=== PATIENT | male | born 1945 | race Caucasian/White ===

== ENCOUNTER → 2019-02-06 | Outpatient (CLI) | payer OTHER ==
[~2019-02-06] MED LIST: ACET325 PO; ACET650SUP PR; BUSP5 PO; DILANTIN; DOCU100 PO; HYDACE5325 PO; LAMICTAL; LAMO100 PO; OXYACE5T PO; PHENY100ER PO; SENN187 PO; TRAZ50 PO; Tylenol325 MG PO; [UNRECOGNIZED DRUG - REMARK]
== END | disposition home or self-care (01) ==
LOC: LAB SHORT 18:28 → LAB 18:28
DX: N39.0 Urinary tract infection, site not specified (principal); R31.9 Hematuria, unspecified
CPT/HCPCS: 87077; 87086; 87186

== ENCOUNTER 2019-06-19 13:12 | Emergency (ER) | payer OTHER ==
[~2019-06-19] VITALS: Ht 177.8 cm; Wt 72.6 kg
[2019-06-19] MEDS ORDERED: ZESTORETIC 20-121 EA (13:48)
[2019-06-19] MEDS ORDERED: Cetirizine HCl10 MG PO (13:49)
[2019-06-19 14:13] LABS: BASOPHILS ABSOLUTE AUTO 0.04 K/mm3 (0.00-0.23); BASOPHILS PERCENT AUTO 0 % (0-2); EOSINOPHILS ABSOLUTE AUTO 0.05 K/mm3 (0.00-0.68); EOSINOPHILS PERCENT AUTO 1 % (0-6); Hematocrit 39.2 % (37.0-53.0); Hemoglobin 12.6 g/dL (13.5-17.5); IMMATURE GRAN ABSOLUTE AUTO 0.03 K/mm3 (0.00-0.10); IMMATURE GRAN PERCENT AUTO 0 % (0-1); LYMPHOCYTES ABSOLUTE AUTO 1.37 K/mm3 (0.84-5.20); LYMPHOCYTES PERCENT AUTO 14 % (21-46); MONOCYTES ABSOLUTE AUTO 0.88 K/mm3 (0.16-1.47); MONOCYTES PERCENT AUTO 9 % (4-13); Mean Corpuscular HGB 31.7 pg (26.0-34.0); Mean Corpuscular HGB Conc 32.1 g/dL (31.5-36.5); Mean Corpuscular Volume 99 fL (80-100); Mean Platelet Volume 11.6 fL (9.1-12.4); NEUTROPHILS ABSOLUTE AUTO 7.38 K/mm3 (1.96-9.15); NEUTROPHILS PERCENT AUTO 76 % (41-73); Platelet Count 209 K/mm3 (150-400); RDW Standard Deviation 47.1 fL (35.1-46.3); Red Blood Cell Count 3.98 M/mm3 (4.30-5.90); White Blood Cell Count 9.75 K/mm3 (4.00-11.30)
[2019-06-19 14:23] LABS: Alanine Aminotransfer (ALT/SGP 26 U/L (12-78); Albumin, Blood 3.8 g/dL (3.4-5.0); Albumin/Globulin Ratio 1.2 (0.8-1.8); Alk Phos 87 U/L (50-136); Anion Gap 7 mmol/L (6-16); Aspartate Aminotrans (AST/SGOT 55 U/L (12-37); Bilirubin, Total 0.7 mg/dL (0.1-1.0); Blood Urea Nitrogen 29 mg/dL (8-24); Bun/Creatinine Ratio 32.1 (12.0-20.0); CO2, Blood 23 mmol/L (21-32); Calcium, Blood 8.8 mg/dL (8.5-10.1); Chloride, Blood 113 mmol/L (98-108); Dilantin (Phenytoin), Total <0.4 ug/mL (10.0-20.0); Globulin, Blood 3.3 g/dL (2.2-4.0); Glomerular Filtration Rate >60 (60-); Glucose, Blood 101 mg/dL (70-99); Potassium, Blood 3.8 mmol/L (3.5-5.5); Sodium, Blood 143 mmol/L (136-145); Total Protein, Blood 7.1 g/dL (6.4-8.2)
[2019-06-19] MEDS ORDERED: Dilantin 100 m100 MG PO (15:56)
[2019-06-19] MEDS ORDERED: BUSP5 PO (15:56)
[2019-06-19] MEDS ORDERED: Hydrochloroth12.5 MG PO (15:56)
[2019-06-19] MEDS ORDERED: Prinivil10 MG PO (15:56)
[2019-06-19] MEDS ORDERED: Lamictal100 MG PO (15:56)
== END 2019-06-19 16:35 | disposition home or self-care (01) ==
LOC: ER 13:12
PROVIDERS: Emergency Medicine
DX: G40.909 Epilepsy, unspecified, not intractable, without status epilepticus (principal); F32.9 Major depressive disorder, single episode, unspecified; Z91.14 Patient's other noncompliance with medication regimen; Z79.899 Other long term (current) drug therapy; Z87.891 Personal history of nicotine dependence
CPT/HCPCS: 36415; 80053; 80185; 85025; 93005; 93010; 96365; 99284-25; Q2009

== ENCOUNTER 2019-08-13 15:21 | Emergency (ER) | payer OTHER ==
[~2019-08-13] VITALS: Ht 177.8 cm; Wt 74.8 kg
[~2019-08-13 15:21] MED LIST changes: +Cetirizine HCl10 MG PO; +Dilantin 100 m100 MG PO; +Hydrochloroth12.5 MG PO; +Lamictal100 MG PO; +Prinivil10 MG PO; +ZESTORETIC 20-121 EA
[2019-08-13] MEDS ORDERED: LEVE500 PO (17:20)
[2019-08-13 17:22] LABS: BASOPHILS ABSOLUTE AUTO 0.06 K/mm3 (0.00-0.23); BASOPHILS PERCENT AUTO 1 % (0-2); EOSINOPHILS ABSOLUTE AUTO 0.38 K/mm3 (0.00-0.68); EOSINOPHILS PERCENT AUTO 6 % (0-6); Hematocrit 39.8 % (37.0-53.0); IMMATURE GRAN ABSOLUTE AUTO 0.03 K/mm3 (0.00-0.10); IMMATURE GRAN PERCENT AUTO 1 % (0-1); LYMPHOCYTES ABSOLUTE AUTO 1.26 K/mm3 (0.84-5.20); LYMPHOCYTES PERCENT AUTO 21 % (21-46); MONOCYTES ABSOLUTE AUTO 0.56 K/mm3 (0.16-1.47); MONOCYTES PERCENT AUTO 9 % (4-13); Mean Corpuscular HGB 31.3 pg (26.0-34.0); Mean Corpuscular HGB Conc 32.7 g/dL (31.5-36.5); Mean Corpuscular Volume 96 fL (80-100); Mean Platelet Volume 10.4 fL (9.1-12.4); NEUTROPHILS ABSOLUTE AUTO 3.81 K/mm3 (1.96-9.15); NEUTROPHILS PERCENT AUTO 62 % (41-73); Platelet Count 236 K/mm3 (150-400); RDW Coefficient Variation 12.2 % (11.7-14.2); Red Blood Cell Count 4.16 M/mm3 (4.30-5.90)
[2019-08-13 17:40] LABS: Alanine Aminotransfer (ALT/SGP 58 U/L (12-78); Albumin, Blood 3.4 g/dL (3.4-5.0); Alk Phos 93 U/L (50-136); Anion Gap 5 mmol/L (6-16); Aspartate Aminotrans (AST/SGOT 34 U/L (12-37); Bilirubin, Total 0.3 mg/dL (0.1-1.0); Blood Urea Nitrogen 16 mg/dL (8-24); Bun/Creatinine Ratio 24.7 (12.0-20.0); CO2, Blood 26 mmol/L (21-32); Chloride, Blood 109 mmol/L (98-108); Creatinine, Blood 0.65 mg/dL (0.60-1.20); Globulin, Blood 3.5 g/dL (2.2-4.0); Glomerular Filtration Rate >60 (60-); Glucose, Blood 105 mg/dL (70-99); Magnesium, Blood 2.1 mg/dL (1.6-2.4); Potassium, Blood 4.4 mmol/L (3.5-5.5); Sodium, Blood 140 mmol/L (136-145); Total Protein, Blood 6.9 g/dL (6.4-8.2)
[2019-08-13 17:46] LABS: Dilantin (Phenytoin), Total 8.7 ug/mL (10.0-20.0)
[2019-08-13] MEDS ORDERED: MICROZIDE12.5 M1 PO (17:51)
== END 2019-08-13 18:52 | disposition home or self-care (01) ==
LOC: ER 15:21
PROVIDERS: Emergency Medicine
DX: G40.909 Epilepsy, unspecified, not intractable, without status epilepticus (principal); F32.9 Major depressive disorder, single episode, unspecified; Z87.891 Personal history of nicotine dependence; Z79.899 Other long term (current) drug therapy
CPT/HCPCS: 36415; 80053; 80185; 83735; 85025; 96365; 99284-25; J1953

== ENCOUNTER 2019-08-23 12:11 | Emergency (ER) | payer OTHER ==
[~2019-08-23] VITALS: Ht 152.4 cm; Wt 77.1 kg
[~2019-08-23 12:11] MED LIST changes: +LEVE500 PO; +MICROZIDE12.5 M1 PO
[2019-08-23] MEDS ORDERED: Lamictal100 MG PO (13:12)
[2019-08-23] MEDS ORDERED: Dilantin 100 m100 MG PO (13:12)
[2019-08-23] MEDS ORDERED: LEVE500 PO (13:12)
== END 2019-08-23 14:13 | disposition home or self-care (01) ==
LOC: ER 12:11
DX: G40.909 Epilepsy, unspecified, not intractable, without status epilepticus (principal); F32.9 Major depressive disorder, single episode, unspecified; F17.210 Nicotine dependence, cigarettes, uncomplicated; Z91.14 Patient's other noncompliance with medication regimen; Z79.899 Other long term (current) drug therapy
CPT/HCPCS: 99284

== ENCOUNTER → 2020-08-20 | Outpatient (CLI) | payer OTHER | LOC: LAB SHORT 08:00 → PLD 08:00 | DX: R30.0 Dysuria (principal) | CPT/HCPCS: 87077; 87086; 87186 ==

== ENCOUNTER → 2021-03-28 | Outpatient (CLI) | payer OTHER | END | disposition home or self-care (01) | LOC: LAB SHORT 07:50 | DX: D48.5 Neoplasm of uncertain behavior of skin (principal) | CPT/HCPCS: 88305 ==

== ENCOUNTER → 2022-10-20 | Outpatient (CLI) | payer OTHER ==
[2022-10-20 12:58] LABS: BASOPHILS ABSOLUTE AUTO 0.04 K/mm3 (0.00-0.23); BASOPHILS PERCENT AUTO 1 % (0-2); EOSINOPHILS PERCENT AUTO 2 % (0-6); Hematocrit 42.1 % (37.0-53.0); Hemoglobin 13.3 g/dL (13.5-17.5); IMMATURE GRAN ABSOLUTE AUTO 0.02 K/mm3 (0.00-0.10); IMMATURE GRAN PERCENT AUTO 0 % (0-1); LYMPHOCYTES ABSOLUTE AUTO 1.45 K/mm3 (0.84-5.20); LYMPHOCYTES PERCENT AUTO 30 % (21-46); MONOCYTES ABSOLUTE AUTO 0.49 K/mm3 (0.16-1.47); MONOCYTES PERCENT AUTO 10 % (4-13); Mean Corpuscular HGB 29.2 pg (26.0-34.0); Mean Corpuscular HGB Conc 31.6 g/dL (31.5-36.5); Mean Corpuscular Volume 93 fL (80-100); Mean Platelet Volume 11.2 fL (9.1-12.4); NEUTROPHILS ABSOLUTE AUTO 2.82 K/mm3 (1.96-9.15); NEUTROPHILS PERCENT AUTO 57 % (41-73); Platelet Count 191 K/mm3 (150-400); RDW Coefficient Variation 13.4 % (11.7-14.2); RDW Standard Deviation 45.2 fL (35.1-46.3); Red Blood Cell Count 4.55 M/mm3 (4.30-5.90); White Blood Cell Count 4.92 K/mm3 (4.00-11.30)
[2022-10-20 14:20] LABS: Albumin, Blood 3.5 g/dL (3.4-5.0); Albumin/Globulin Ratio 1.2 (0.8-1.8); Bilirubin, Total 0.5 mg/dL (0.1-1.0); Bun/Creatinine Ratio 16.8 (12.0-20.0); Calcium, Blood 8.9 mg/dL (8.5-10.1); Creatinine, Blood 0.71 mg/dL (0.60-1.20); Potassium, Blood 4.2 mmol/L (3.5-5.5); Thyroid Stimulating Hormone 1.99 uIU/mL (0.360-4.800); Total Protein, Blood 6.5 g/dL (6.4-8.2)
== END | disposition home or self-care (01) ==
LOC: LAB HH 12:14
PROVIDERS: Family Medicine
DX: M81.0 Age-related osteoporosis without current pathological fracture (principal); E53.8 Deficiency of other specified B group vitamins; R00.2 Palpitations; R79.9 Abnormal finding of blood chemistry, unspecified; G40.909 Epilepsy, unspecified, not intractable, without status epilepticus; R53.83 Other fatigue
CPT/HCPCS: 80053; 82306; 82607; 83036; 84443; 85025

== ENCOUNTER 2023-08-25 20:43 | Observation (INO) | payer OTHER ==
[~2023-08-25] VITALS: Ht 177.8 cm; Wt 78.0 kg
[2023-08-26 01:03] LABS: Hematocrit 33.7 % (37.0-53.0); Hemoglobin 11.2 g/dL (13.5-17.5); Mean Corpuscular HGB 30.8 pg (26.0-34.0); Mean Corpuscular HGB Conc 33.2 g/dL (31.5-36.5); Mean Corpuscular Volume 93 fL (80-100); Mean Platelet Volume 10.9 fL (9.1-12.4); Platelet Count 146 K/mm3 (150-400); RDW Coefficient Variation 12.9 % (11.7-14.2); Red Blood Cell Count 3.64 M/mm3 (4.30-5.90); White Blood Cell Count 10.77 K/mm3 (4.00-11.30)
--- NOTE | 2023-08-26 01:20 | NUR ---
ARRIVAL ON UNIT. PT ARRIVED FROM ER TO SURGICAL FLOOR ROOM 214 VIA HOSPITAL BED. PT TRANSFERED VIA SLIDER SHEET WITHOUT INCIDENT. PT'S VITALS OBTAINED, WT, AND PT ORIENTED TO ROOM. PT REPORTED HAVING A WALLET ON HIS PERSON, EDUCATED PT OF [employer] POLICY AND OFFERED PT TO HAVE A LOCK BOX WITH SECURITY. PT STATED HE WILL THINK ABOUT IT. PT RESTING WITH CALL LIGHT IN REACH.
[2023-08-26 01:23] LABS: Bun/Creatinine Ratio 22.8 (12.0-20.0); Calcium, Blood 8.4 mg/dL (8.5-10.1); Creatinine, Blood 0.62 mg/dL (0.60-1.20); Potassium, Blood 4.1 mmol/L (3.5-5.5)
[2023-08-26 01:28] VITALS: BP 158/70
[2023-08-26 04:51] VITALS: BP 152/69
[2023-08-26 07:23] VITALS: BP 139/64
[2023-08-26 15:06] VITALS: BP 167/76
--- NOTE | 2023-08-26 18:39 | NUR ---
SHIFT SUMMARY A/O X3- PELVIC FX RESULTING FROM GLF. SURG OBS TODAY- REPORTED TO BE NONSURGICAL. PATIENT UP TO CHAIR W/ THERAPY TODAY. PO PAIN MEDICATION PER EMAR. VITAL SIGNS STABLE. VOIDING WELL. TOLERATING PO INTAKE. WILL REPORT TO ONCOMING RN.
[2023-08-26 19:42] VITALS: BP 145/61
[2023-08-27 04:03] VITALS: BP 134/67
--- NOTE | 2023-08-27 06:50 | NUR ---
SHIFT SUMMARY NOC. PT A/O X4. PT TOLERATING PO INTAKE AND VOIDING URINE. PT MEDICATED FOR PAIN WITH RELIEF OF SX. PT REMOVED HIS BANDAGE ON HIS RIGHT FOREARM D/T TO ITCHING. PT DECLINED TO HAVE DRESSING REPLACED. NO EXCORIATION NOTED AND SCAB IS FORMING. PROVIDED EDUCATION TO KEEP CLEAN TEAR, DRY, AND INTACT. PT RESTED WITH EYES CLOSED AND CALL LIGHT IN REACH.
[2023-08-27 07:07] VITALS: BP 129/57
--- NOTE | 2023-08-27 08:28 | NUR ---
Pt. is awake in bed and eating breakfast when he welcomes my visit. Pt. isd pleasant. Facilitate a life review where Pt. is unsettled about leaving his pets in his apartment at [facility]. Listen with interest and empathy. Pt. displays evidence of trust and engagement. Seek to normalize the Pt. experience. Prayed with Pt. Pt. verbalzed gratitude for the spiritual care visit, and invited this chamber walker to visit him there.
[2023-08-27] MEDS ORDERED: Norco 5-325 Ta1 EACH PO (12:33)
--- NOTE | 2023-08-27 14:53 | NUR ---
DISCHARGE SUMMARY PT A/O X4- AMBULATED W/ THERAPY THIS AM. TOLERATING PO INTAKE AND VOIDING WELL. VITAL SIGNS STABLE. PAIN MANAGED W/ PO PAIN MEDICATION. HARD SCRIPT FOR NARCOTICS SENT W/ PATIENT. WRITTEN AND VERBAL DISCHARGE INSTRUCTIONS GIVEN, PATIENT UNDERSTANDS AND IS AGREEABLE TO DISCHARGE. IV REMOVED W/ CATH TIP INTACT. BELONGINGS GATHERED AND SENT HOME WITH PATIENT. PATIENT PICKED UP BY TRANSPORT AND IS BEING DISCHARGED BACK TO [facility] W/ HOME HEALTH SERVICES.
== END 2023-08-27 14:59 ==
LOC: ER 20:43 → SURS 20:44
PROVIDERS: ADMIT Internal Medicine
DX: S32.301A Unspecified fracture of right ilium, initial encounter for closed fracture (principal); W18.30XA Fall on same level, unspecified, initial encounter; G40.909 Epilepsy, unspecified, not intractable, without status epilepticus; G62.9 Polyneuropathy, unspecified; I10 Essential (primary) hypertension; Z87.891 Personal history of nicotine dependence
CPT/HCPCS: 72192; 73502; 80048; 85027; 96365; 96372; 96375; 97110; 97116; 97162; 99285-25; A9270; G0378; J1650; J1953; J3010

== ENCOUNTER 2023-10-15 09:24 | Emergency (ER) | payer OTHER ==
[~2023-10-15] VITALS: Ht 172.7 cm; Wt 68.0 kg
[~2023-10-15 09:24] MED LIST changes: +Norco 5-325 Ta1 EACH PO
[2023-10-15 09:59] LABS: BASOPHILS ABSOLUTE AUTO 0.04 K/mm3 (0.00-0.23); BASOPHILS PERCENT AUTO 1 % (0-2); EOSINOPHILS PERCENT AUTO 1 % (0-6); Hematocrit 33.6 % (37.0-53.0); IMMATURE GRAN ABSOLUTE AUTO 0.03 K/mm3 (0.00-0.10); IMMATURE GRAN PERCENT AUTO 0 % (0-1); LYMPHOCYTES ABSOLUTE AUTO 0.46 K/mm3 (0.84-5.20); LYMPHOCYTES PERCENT AUTO 7 % (21-46); MONOCYTES ABSOLUTE AUTO 0.66 K/mm3 (0.16-1.47); MONOCYTES PERCENT AUTO 9 % (4-13); Mean Corpuscular HGB 30.1 pg (26.0-34.0); Mean Corpuscular HGB Conc 32.7 g/dL (31.5-36.5); Mean Corpuscular Volume 92 fL (80-100); Mean Platelet Volume 9.4 fL (9.1-12.4); NEUTROPHILS ABSOLUTE AUTO 5.77 K/mm3 (1.96-9.15); NEUTROPHILS PERCENT AUTO 82 % (41-73); Platelet Count 208 K/mm3 (150-400); RDW Coefficient Variation 12.9 % (11.7-14.2); RDW Standard Deviation 43.5 fL (35.1-46.3); Red Blood Cell Count 3.66 M/mm3 (4.30-5.90); White Blood Cell Count 7.06 K/mm3 (4.00-11.30)
[2023-10-15 10:18] LABS: Albumin/Globulin Ratio 0.9 (0.8-1.8); Bilirubin, Total 0.5 mg/dL (0.1-1.0); Bun/Creatinine Ratio 15.6 (12.0-20.0); Calcium, Blood 8.5 mg/dL (8.5-10.1); Creatinine, Blood 0.64 mg/dL (0.60-1.20); Globulin, Blood 3.3 g/dL (2.2-4.0); Potassium, Blood 4.2 mmol/L (3.5-5.5); Total Protein, Blood 6.3 g/dL (6.4-8.2)
[2023-10-15 10:51] LABS: BASOPHILS PERCENT MAN 0 % (0-2); EOSINOPHILS ABSOLUTE MAN 0.14 K/mm3 (0.00-0.68); EOSINOPHILS PERCENT MAN 2 % (0-6); LYMPHOCYTES ABSOLUTE MAN 0.42 K/mm3 (0.84-5.20); LYMPHOCYTES PERCENT MAN 6 % (21-46); MONOCYTES ABSOLUTE MAN 0.28 K/mm3 (0.16-1.47); MONOCYTES PERCENT MAN 4 % (4-13); NEUTROPHILS ABSOLUTE MAN 6.21 K/mm3 (1.96-9.15); SEG NEUTROPHILS PERCENT MAN 88 % (41-73); TOTAL CELLS COUNTED 100
[2023-10-15 11:33] LABS: Influenza A, PCR NEGATIVE (NEGATIVE); Influenza B, PCR NEGATIVE (NEGATIVE); Resp Syncytial Virus, PCR NEGATIVE (NEGATIVE); SARS-Cov-2 (COVID-19) PCR, MMC POSITIVE (NEGATIVE)
[2023-10-15 15:19] LABS: Source, Urine Voided
[2023-10-15 15:35] LABS: Appearance, Urine Hazy (Clear); Bilirubin, Urine Neg (Neg); Blood, Urine 2+ (Neg); Color, Urine Yellow (P-Yellow); Glucose Qualitative, Urine Neg (Neg); Ketones, Urine Neg (Neg); Leukocyte Esterase, Urine 3+ (Neg); Nitrite, Urine Pos (Neg); Protein, Urine 1+ (Neg); Specific Gravity, Urine 1.005 (1.003-1.022); Urobilinogen, Urine 1+ (Normal)
[2023-10-15 16:14] LABS: Squamous Epithelial Cells Rare /hpf (Few); White Blood Cells, Urine TNTC /hpf (0-5)
[2023-10-15 16:15] LABS: Bacteria Many /hpf; Mucus Light (0-Heavy)
[2023-10-15] MEDS ORDERED: CEPH500 PO (16:31)
[2023-10-15 17:00] VITALS: BP 139/70
== END 2023-10-15 18:40 | disposition home or self-care (01) ==
LOC: ER 09:24
PROVIDERS: Emergency Medicine
DX: U07.1 COVID-19 (principal); N39.0 Urinary tract infection, site not specified; F17.200 Nicotine dependence, unspecified, uncomplicated; G40.909 Epilepsy, unspecified, not intractable, without status epilepticus; G62.9 Polyneuropathy, unspecified; Z79.899 Other long term (current) drug therapy
CPT/HCPCS: 0241U; 71045; 80053; 81001; 84484; 85025; 93005; 93010; 96365; 99285-25; J0696

== ENCOUNTER → 2024-07-24 | Outpatient (CLI) | payer OTHER ==
[~2024-07-24] MED LIST changes: +CEPH500 PO
[2024-07-24 12:06] LABS: Bun/Creatinine Ratio 30.8 (12.0-20.0); Calcium, Blood 8.9 mg/dL (8.5-10.1); Creatinine, Blood 0.65 mg/dL (0.60-1.20); Potassium, Blood 4.5 mmol/L (3.5-5.5)
== END ==
LOC: LAB 11:30 → LAB SHORT 11:30
PROVIDERS: Registered Nurse Oncology
DX: M85.88 Other specified disorders of bone density and structure, other site (principal)
CPT/HCPCS: 80048

== ENCOUNTER 2024-12-02 09:14 | Emergency (ER) | payer OTHER ==
[~2024-12-02] VITALS: Ht 177.8 cm; Wt 79.4 kg
[2024-12-02] MEDS ORDERED: Meclizine HCl 25 MG Tab PO ONE (09:50)
[2024-12-02 10:15] LABS: BASOPHILS ABSOLUTE AUTO 0.04 K/mm3 (0.00-0.23); BASOPHILS PERCENT AUTO 1 % (0-2); EOSINOPHILS ABSOLUTE AUTO 0.14 K/mm3 (0.00-0.68); EOSINOPHILS PERCENT AUTO 3 % (0-6); Hematocrit 34.7 % (37.0-53.0); Hemoglobin 11.6 g/dL (13.5-17.5); IMMATURE GRAN ABSOLUTE AUTO 0.02 K/mm3 (0.00-0.10); IMMATURE GRAN PERCENT AUTO 0 % (0-1); LYMPHOCYTES ABSOLUTE AUTO 1.01 K/mm3 (0.84-5.20); LYMPHOCYTES PERCENT AUTO 18 % (21-46); MONOCYTES ABSOLUTE AUTO 0.45 K/mm3 (0.16-1.47); MONOCYTES PERCENT AUTO 8 % (4-13); Mean Corpuscular HGB 31.9 pg (26.0-34.0); Mean Corpuscular HGB Conc 33.4 g/dL (31.5-36.5); Mean Corpuscular Volume 95 fL (80-100); Mean Platelet Volume 9.3 fL (9.1-12.4); NEUTROPHILS ABSOLUTE AUTO 3.96 K/mm3 (1.96-9.15); NEUTROPHILS PERCENT AUTO 70 % (41-73); Platelet Count 203 K/mm3 (150-400); RDW Coefficient Variation 12.4 % (11.7-14.2); RDW Standard Deviation 43.4 fL (35.1-46.3); Red Blood Cell Count 3.64 M/mm3 (4.30-5.90); White Blood Cell Count 5.62 K/mm3 (4.00-11.30)
[2024-12-02 10:33] LABS: Albumin, Blood 3.3 g/dL (3.4-5.0); Albumin/Globulin Ratio 1.2 (0.8-1.8); Bilirubin, Total 0.4 mg/dL (0.1-1.0); Bun/Creatinine Ratio 31.8 (12.0-20.0); Calcium, Blood 8.3 mg/dL (8.5-10.1); Creatinine, Blood 0.72 mg/dL (0.60-1.20); Globulin, Blood 2.7 g/dL (2.2-4.0); Magnesium, Blood 2.3 mg/dL (1.6-2.4); Potassium, Blood 4.4 mmol/L (3.5-5.5)
[2024-12-02] MEDS ORDERED: MOTION RELIEF25 MG PO (11:26)
[2024-12-02 11:45] VITALS: BP 166/81
== END 2024-12-02 11:45 | disposition home or self-care (01) ==
LOC: ER 09:14
PROVIDERS: Emergency Medicine
DX: S09.90XA Unspecified injury of head, initial encounter (principal); R42 Dizziness and giddiness; Z87.891 Personal history of nicotine dependence; I10 Essential (primary) hypertension; Z79.899 Other long term (current) drug therapy; Z79.84 Long term (current) use of oral hypoglycemic drugs; Z51.81 Encounter for therapeutic drug level monitoring; Z79.891 Long term (current) use of opiate analgesic; Z79.2 Long term (current) use of antibiotics; W18.30XA Fall on same level, unspecified, initial encounter
CPT/HCPCS: 70450; 72125; 80053; 83735; 84484; 85025; 93005; 93010; 99284-25; A9270

== ENCOUNTER 2025-07-22 10:38 | Day surgery (SDC) | payer OTHER ==
[~2025-07-22] VITALS: Ht 177.8 cm; Wt 84.6 kg
[~2025-07-22 10:38] MED LIST changes: +Bupivacaine 0.5% W/EPI 1:200000 SDV 30 ML Vial ONE; +MOTION RELIEF25 MG PO
[2025-07-22] MEDS ORDERED: TRAZ50 PO (11:05)
[2025-07-22] MEDS ORDERED: FLUO10 PO (11:05)
[2025-07-22] MEDS ORDERED: TAMS.4ER (11:06)
[2025-07-22] MEDS ORDERED: LEVE500 (11:06)
[2025-07-22] MEDS ORDERED: FOSAMAX70 MG PO (11:07)
[2025-07-22] MEDS ORDERED: LOSA50 PO (11:07)
[2025-07-22] MEDS ORDERED: DOXA2 PO (11:09)
[2025-07-22] MEDS ORDERED: FentaNYL Citrate 50 MCG/ML 2 ML Injection ONE (11:10)
[2025-07-22] MEDS ORDERED: Midazolam HCl 1MG / ML 2ML Vial ONE (11:10)
[2025-07-22] MEDS ORDERED: Vitamin D1000 UNI1 PO (11:11)
[2025-07-22] MEDS ORDERED: CeFAZolin Sodium 2,000 MG VIAL ONE (11:15)
--- NOTE | 2025-07-22 13:06 | NUR ---
07/22/25 1307 Kimberley Gonzales RN ASSISTED PT TO RECLINER. IT WAS NOTICED PT HAD A BM. PT WAS CLEANED AND PLACED IN NEW BRIEF. VSS. PT DENIES DIZZINES/NAUSEA/PAIN AT THIS TIME.
[2025-07-22 13:25] VITALS: BP 149/65
== END 2025-07-22 13:27 | disposition home or self-care (01) ==
LOC: ORSCSDS 10:38
PROVIDERS: Orthopaedic Surgery
PROC: 0YP90YZ Removal of Other Device from Right Lower Extremity, Open Approach (ICD-10-PCS; principal; 2025-07-22 12:00)
DX: T84.9XXA Unspecified complication of internal orthopedic prosthetic device, implant and graft, initial encounter (principal); I10 Essential (primary) hypertension; F32.A Depression, unspecified; R56.9 Unspecified convulsions; F17.290 Nicotine dependence, other tobacco product, uncomplicated; Z79.899 Other long term (current) drug therapy
CPT/HCPCS: J0690; J2250; J2704; J3010; J7120